=== PATIENT | female | born 2000 | race Caucasian/White ===

== ENCOUNTER 2024-08-27 18:40 | Emergency (ER) | payer MEDICAID, SELFPAY ==
[2024-08-27 18:51] VITALS: BP 136/70; PULSE 100; RESP 18; TEMP 36.6; O2SAT 99; BMI 32.5
--- NOTE | 2024-08-27 18:59 | PD.EDRME ---
Rapid Medical Screening Exam RME Arrival date/time: 08/27/24 18:40 24 year old female present to Ed for c/o possible abscess in groin area. + I have greeted and performed a focused initial assessment of this patient. A comprehensive ED assessment and evaluation of the patient, analysis of all test results, and completion of the medical decision making process will be conducted by additional ED providers. Chief Complaint: Skin/Abscess/Foreign Body Time Seen by Provider: 08/27/24 18:42 Vital signs: Vital Signs Temperature 98 F 08/27/24 18:51 Pulse Rate 100 08/27/24 18:51 Respiratory Rate 18 08/27/24 18:51 Blood Pressure 136/70 H 08/27/24 18:51 Pulse Oximetry (%) 99 08/27/24 18:51 Oxygen Delivery Method Room Air 08/27/24 18:51
--- NOTE | 2024-08-27 19:30 | XR_ITS ---
Examination: Ultrasound soft tissue left perineum Technique: Multiple high resolution grayscale sonographic images soft tissue left perineum Exam date and time: August 27, 2024 1951 hrs. Indications: Palpable painful lump in the left peroneal region noticed beginning 4 days ago Findings: Soft tissue mass with internal echoes 5.5 x 3.5 x 3.1 cm most consistent with abscess Impression: Findings most consistent with soft tissue abscess in the left perineum
[2024-08-27 20:12] VITALS: BP 144/80; PULSE 114; RESP 18; TEMP 37.3; O2SAT 98
--- NOTE | 2024-08-27 21:10 | PD.EDSKIN ---
ED Skin Abcess FB-RME/HPI General Chief complaint: Skin/Abscess/Foreign Body Stated complaint: ABSCESS TO PERINEAL AREA Time Seen by Provider: 08/27/24 18:42 Source: patient Arrival date/time: 08/27/24 18:40 Mode of arrival: ambulatory Limitations: no limitations RME / HPI RME / HPI narrative: 08/27/24 18:40 24 year old female present to Ed for c/o possible abscess in groin area. + I have greeted and performed a focused initial assessment of this patient. A comprehensive ED assessment and evaluation of the patient, analysis of all test results, and completion of the medical decision making process will be conducted by additional ED providers. DR PERRY MAIN ED EVALUATION: 24-year-old female patient complaining of pain and swelling to her left labia starting 2 days ago. Denies fever chills sweats. States she had a visit 2 days ago and complained of dysuria however they did not check her urine at that time in the clinic. Related Data Previous Rx's ?Medication ?Instructions ?Recorded P-EPHED SUL/LORATADINE 1 tab PO QDAY Allergies #30 tabs 10/27/17 (LORATADINE-D 24HR TAB) albuterol sulfate 90 mcg/actuation 1 - 2 puff inhalation Q6HR PRN 10/27/17 aerosol inhaler (ProAir HFA) WHEEZING #1 inh amoxicillin 500 mg capsule 1 cap PO TID sinusitis #30 caps 10/27/17 cephalexin 500 mg capsule 500 mg PO TID #15 caps 08/27/24 Allergies Allergy/AdvReac Type Severity Reaction Status Date / Time No Known Allergies Allergy Verified 08/27/24 18:41 Review of Systems Review of Systems Systems Reviewed: All systems reviewed, normal except as documented Past Medical History Social History SMOKING STATUS: Never smoker ED Exam Narrative Physical exam: GENERAL APPEARANCE: alert and oriented x 4, well-developed, well-nourished, no acute distress VITALS: All vitals were reviewed and the pulse ox is 98% on room air, which is normal according to my interpretation. HEENT: Normocephalic, atraumatic; pupils equal, round, reactive to light; EOMI; mucous membranes pink, moist; oropharynx clear NECK: Supple LUNGS: CTABL; no wheezes, no rales, no rhonchi HEART: Regular rate, regular rhythm; normal S1, S2; no murmurs ABDOMEN: non distended; normal BS; soft, no tenderness, no guarding, no rebound; no masses, no organomegaly, no hernia BACK: no CVA tenderness EXTREMITIES: atraumatic; no edema NEUROLOGIC: awake; alert and oriented x4; cranial nerves II-XII grossly intact; no focal sensory or motor deficits PSYCHIATRIC: appropriate mood and affect SKIN: warm, dry, normal color; no rashes / see procedure note for I&D left labial abscess General Limitations: Present no limitations Course Quality Measures none Orders Category Date Time Status US soft tissue lower back abd Stat Exams 08/27/24 19:30 Completed UA, C/S IF [Urinalysis, C/S if Indicated] Stat Lab 08/27/24 21:30 Completed Urine Culture Stat Lab 08/27/24 21:30 Received Lidocaine 1% 20 ml [Xylocaine 1% 20 ML] Med 08/27/24 20:45 Discontinued 20 ml INFL X1 ONE cephALEXin [Keflex] Med 08/27/24 23:18 Discontinued 500 mg PO X1 ONE Vital Signs Vital signs: Vital Signs Temperature 98 F 08/27/24 18:51 Pulse Rate 100 08/27/24 18:51 Respiratory Rate 18 08/27/24 18:51 Blood Pressure 136/70 H 08/27/24 18:51 Pulse Oximetry (%) 99 08/27/24 18:51 Oxygen Delivery Method Room Air 08/27/24 18:51 Procedures -ED Abscess I/D Site: other (labial abscess) Side (if applicable): left Local Anesthetic: lidocaine 1% Technique: incised with #11 blade Irrigation: Yes Packing used?: plain Skin / Abscess / Foreign Body MDM Narrative MDM Narrative:: Scribe Attestation: ILeta am scribing for and in the presence of Dr. Perry. Provider Notation: Although this document has been carefully reviewed, there may still be some phonetic and other typographical errors. These errors are purely grammatical due to imperfections in the software program and should not be construed in any way to compromise the substance of the patient's medical care during this visit. Patient data External records reviewed:: [facility] previous records (Reviewed documentation - patient is Rh-.) Clinical information provided by:: patient Social determinants that could affect healthcare access:: none Patient has the following chronic illnesses:: None How is presenting disease/condition affected by chronic disease/condition?: no chronic disease Evaluation data The following diagnostics were reviewed and interpreted by me:: radiology exam(s) Lab and/or radiology exams considered but not ordered:: None Interpretation Summary: I personally reviewed the soft tissue ultrasound. Medications / Prescriptions Medications or Prescriptions considered but not ordered:: None Medication administrations:: Medication Administration History Discontinued Medications Cephalexin HCl (Cephalexin 250 Mg Capsule) 500 mg PO X1 ONE Stop: 08/27/24 23:19 Lidocaine HCl (Lidocaine Hcl 1% 20 Ml Vial) 20 ml INFL X1 ONE Stop: 08/27/24 20:46 Last Admin: 08/27/24 21:57 Dose: 20 ml Documented By: MP As above Consultations Consultation(s) initiated? (list below): No Diagnosis Skin/Abscess Differential Diagnosis: abscess of skin or subcutaneous tissue, herpes zoster, cellulitis and contact dermatitis Most likely diagnosis given after review of the tests above:: Left genital labial abscess Admission Indicated Admission indicated?: not indicated Admission Request Was there a request for admission?: No Disposition Plan Disposition Plan: Discharge Discharge Attestation Discharge Attestation: The patient and all family members were given an opportunity to ask questions and understood the discharge instructions. Discharge instructions specifically effects, indications for sooner follow up or return to the emergency department, and the expected course of current diagnosis. Patient condition: Stable Discharge Plan Plan Patient Disposition: HOME (Self Care) Prescriptions/Referrals Prescriptions/Med Rec: New cephalexin 500 mg capsule 500 mg PO TID Qty: 15 0RF No Action amoxicillin 500 MG capsule 1 cap PO TID Qty: 30 0RF Rx Instructions: use for 10 days albuterol sulfate [ProAir HFA] 8.5 GM HFA aerosol inhaler 1 - 2 puff Inhalation Q6HR PRN (Reason: WHEEZING) Qty: 1 0RF Rx Instructions: Please give and use spacer P-EPHED SUL/LORATADINE (LORATADINE-D 24HR TAB) 1 EACH TAB.SR.24H 1 tab PO QDAY Qty: 30 0RF Referrals: No Primary/Family,Physician [Primary Care Provider] - In 1 week Problem List Clinical Impression: Left genital labial abscess, UTI (urinary tract infection), Patient/Caregiver Discharge Instructions Education Materials: ED Abscess, Incision And Drainage, ED CYSTITIS Female Adult Additional Instructions: Follow up in 1-2 days for reexamination and wound repacking. Return sooner if you develop fever, symptoms worsen, or other concerns. Print Language: Czech Stand Alone Forms: [facility] Award Info., Patient Portal Info Letter
[2024-08-27] MEDS: LIDOCAINE HCL 1% 20 ML VIAL INFL (21:57)
[2024-08-27 22:02] LABS: Collection Type, Urine Clean Catch
[2024-08-27 22:07] LABS: Bilirubin,Urine Negative (Negative); Blood,Urine 2+ (Negative); Clarity,Urine Turbid (Clear/Hazy); Color,Urine Yellow (Lt Yel-Yel); Glucose, Urine Negative (Negative); Ketones,Urine Negative (Negative); Leukocyte Esterase,Urine Positive (Negative); Nitrite,Urine Negative (Negative); Protein,Urine Trace (Neg - Trace); RBC,Urine 4 /hpf (0-3); Specific Gravity,Urine 1.019 (1.001-1.035); Squamous Epithelial Cell,Urine 6 /hpf (0-5); WBC,Urine 84 /hpf (0-5)
[2024-08-27 22:10] LABS: Culture Indicated,Urine Yes
[2024-08-27 23:45] VITALS: BP 139/89; PULSE 95; RESP 18; TEMP 36.8; O2SAT 100
[2024-08-27] MEDS: cephALEXin 250 MG CAPSULE 500 MG PO (23:58)
--- NOTE | 2024-08-28 00:12 | PC.NURSE ---
223 report recieved from RN. assuming care at this time([id number])
== END 2024-08-28 00:05 | disposition home or self-care (01) ==
PROVIDERS: Emergency Provider Emergency Medicine
DX: O23.599 Infection of other part of genital tract in pregnancy, unspecified trimester (principal); O23.40 Unspecified infection of urinary tract in pregnancy, unspecified trimester; N39.0 Urinary tract infection, site not specified; Z3A.00 Weeks of gestation of pregnancy not specified
CPT/HCPCS: 56405; 76705; 81001; 87077; 87086; 87186; 99284; J3490; A9270

== ENCOUNTER 2024-08-28 20:58 | Emergency (ER) | payer MEDICAID, SELFPAY ==
[2024-08-28 20:59] VITALS: BMI 32.5
[2024-08-28 21:22] VITALS: BP 123/77; PULSE 106; RESP 18; TEMP 36.9; O2SAT 99
--- NOTE | 2024-08-28 21:33 | EDNOTE_ITS ---
<Statement entered by Nuria Perry MD - 08/28/24 22:01> As co-signing physician, I was present and available for consult prn. I concur with the plan and care as documented by the midlevel provider. ED Wound/Laceration-RME/HPI General Chief Complaint: Wound Recheck / Suture Removal Stated Complaint: RE -CHECK WOUND Time Seen by Provider: 08/28/24 21:33 Arrival date/time: 08/28/24 20:58 24 year old female present to emergency room with c/o of wound check and packing removal LOCATION: Groin SEVERITY: Symptoms are described as being severe with limitations on activities of daily living CONTEXT: The patient is unable to identify any inciting events. DURATION/TIMING: The symptoms started approximately 1 day, ASSOCIATED SYMPTOMS: The patient is unable to identify any other associated symptoms. MODIFYING FACTORS: The patient is unable to identify any alleviating or aggra vating symptoms. PERTINENT ROS: no fevers, no nausea,vomiting, diarrhea, no dizziness/headache no rash no loc/syncope episode no abd/back pain no dsyuria,urgency,frequency REVIEW OF SYSTEMS: See History of Present Illness - with the exception of those mentioned in the history of present illness, all other systems reviewed and reported as negative GENERAL: In general the patient is awake, interactive, in an emergency department gurney. HEAD/EYES/EARS/NOSE/THROAT: normo-cephalic, atraumatic, mucus membranes are moist, anicteric, palpebral conjunctiva is pink, trachea is midline. ABDOMEN: soft, not tender, no masses appreciated : packing removal, nurse at bedside. abscess has improved. no discharge BACK: normal range of motion without pain. leg swelling and no peripheral edema. SKIN: warm, dry, well-perfused, no jaundice, no rash, no telangiectasias or petechia. PSYCH: calm, cooperative, no evidence of psychosis or agitation Related Data Previous Rx's ?Medication ?Instructions ?Recorded P-EPHED SUL/LORATADINE 1 tab PO QDAY Allergies #30 tabs 10/27/17 (LORATADINE-D 24HR TAB) albuterol sulfate 90 mcg/actuation 1 - 2 puff inhalation Q6HR PRN 10/27/17 aerosol inhaler (ProAir HFA) WHEEZING #1 inh amoxicillin 500 mg capsule 1 cap PO TID sinusitis #30 caps 10/27/17 cephalexin 500 mg capsule 500 mg PO TID #15 caps 08/27/24 Allergies Allergy/AdvReac Type Severity Reaction Status Date / Time No Known Allergies Allergy Verified 08/27/24 18:41 Course Course Course Narrative: Abscess Repacking by diego davis PA-C Consent: Verbal consent obtained. Patient identity confirmed: arm band Time out: Immediately prior to procedure a time out was called to verify the correct patient, procedure, equipment, biomedical equipment support specialist and site/side marked as required. Type: abscess Location details: xxx Wound treatment: packed with gauze Patient tolerance: Patient tolerated the procedure well with no immediate complications. continue with previous provider instruction and oral antibiotic. Quality Measures none Vital Signs Vital signs: Vital Signs Temperature 98.5 F 08/28/24 21:22 Pulse Rate 106 H 08/28/24 21:22 Respiratory Rate 18 08/28/24 21:22 Blood Pressure 123/77 08/28/24 21:22 Pulse Oximetry (%) 99 08/28/24 21:22 Oxygen Delivery Method Room Air 08/28/24 21:22 Wound / Laceration Patient data External records reviewed:: [facility] previous records Clinical information provided by:: patient Social determinants that could affect healthcare access:: none Patient has the following chronic illnesses:: none How is presenting disease/condition affected by chronic disease/condition?: no chronic disease Evaluation data The following diagnostics were reviewed and interpreted by me:: other (specify) (none ) Lab and/or radiology exams considered but not ordered:: none Interpretation Summary: none Medications / Prescriptions Medications or Prescriptions considered but not ordered:: none Medication administrations:: none Consultations Consultation(s) initiated? (list below): No Diagnosis Wound Differential Diagnosis: abscess and other (packing, wound check ) Most likely diagnosis given after review of the tests above:: wound check, packing removal/repack Admission Indicated Admission indicated?: not indicated Admission Request Was there a request for admission?: No Disposition Plan Disposition Plan: Discharge Discharge Attestation Discharge Attestation: The patient and all family members were given an opportunity to ask questions and understood the discharge instructions. Discharge instructions specifically effects, indications for sooner follow up or return to the emergency department, and the expected course of current diagnosis. Patient condition: Stable Discharge Plan Plan Patient Disposition: HOME (Self Care) Health Concerns: Follow up with PMD as directed Return to ED if symptoms worsen Prescriptions/Referrals Prescriptions/Med Rec: No Action amoxicillin 500 MG capsule 1 cap PO TID Qty: 30 0RF Rx Instructions: use for 10 days albuterol sulfate [ProAir HFA] 8.5 GM HFA aerosol inhaler 1 - 2 puff Inhalation Q6HR PRN (Reason: WHEEZING) Qty: 1 0RF Rx Instructions: Please give and use spacer P-EPHED SUL/LORATADINE (LORATADINE-D 24HR TAB) 1 EACH TAB.SR.24H 1 tab PO QDAY Qty: 30 0RF cephalexin 500 mg capsule 500 mg PO TID Qty: 15 0RF Problem List Clinical Impression: Visit for wound check Patient/Caregiver Discharge Instructions Education Materials: ED Wound Care Print Language: Hungarian Stand Alone Forms: [facility] Award Info., Patient Portal Info Letter
== END 2024-08-28 21:53 | disposition home or self-care (01) ==
LOC: SERX 21:36
PROVIDERS: Emergency Provider Emergency Medicine; PCP Nurse Practitioner Women's Health
DX: Z48.00 Encounter for change or removal of nonsurgical wound dressing (principal)
CPT/HCPCS: 99282

== ENCOUNTER 2024-10-08 15:33 | Observation (INO) | payer MEDICAID, SELFPAY ==
[2024-10-08] VITALS (15 sets, daily range): BP systolic 118–137; BP diastolic 66–84; PULSE 96–129; RESP 16; TEMP 37.1; O2SAT 98–100; BMI 33.3
[2024-10-08 16:29] LABS: Collection Type, Urine Clean Catch
[2024-10-08 16:39] LABS: Bilirubin,Urine Negative (Negative); Blood,Urine Negative (Negative); Color,Urine Yellow (Lt Yel-Yel); Glucose, Urine Negative (Negative); Hyaline Casts,Urine < 1 /hpf (0-1); Ketones,Urine 1+ (Negative); Leukocyte Esterase,Urine Positive (Negative); Nitrite,Urine Negative (Negative); PH,Urine 6.5 (5.0-7.0); Protein,Urine Trace (Neg - Trace); RBC,Urine 1 /hpf (0-3); Specific Gravity,Urine 1.017 (1.001-1.035); Squamous Epithelial Cell,Urine 16 /hpf (0-5); Urobilinogen,Urine Negative mg/dL (0.0-1.0); WBC,Urine 10 /hpf (0-5)
[2024-10-08 16:45] LABS: ROM Kit Lot # 57809118
[2024-10-08 16:46] LABS: ROM Swab Mixed By: ASTOA1; Rupture of Fetal Membranes Negative (Negative); Swb Mxed in Solvent 1 min? Yes
[2024-10-08 16:47] LABS: Clarity,Urine Hazy (Clear/Hazy)
--- NOTE | 2024-10-08 17:46 | PD.LDPN ---
Documentation for date of: 10/08/24 OB Labor Progress Note Pelvic Exam Comments: 0cm/0/high Contractions Contraction frequency: no regular contractions Status Comments: Reactive, no decelerations Assessment and Plan Comments: OB Triage Note 24 yo at 36+5 presents with concern for LOF, pelvic pressure. notable for Hx of UTI x1 s/p treatment. S: Patient reports 2 weeks of pelvic pressure. Concern for discharge or leaking of fluid. No vaginal bleeding, normal FM. Took abx treatment for UTI. O: BP: 118/66 HR: 96 normal O2 GEN: NAD RESP: normal work of breathing ABD: gravid, non tender EXT: no unilateral sweeling BACK: no CVA tenderness SVE: 0 cm, not effaced, high BSUS: cephalic, DVP 5.14cm NST: reactive, no decelerations [place]: no regular contractions: AMnisure: negative UA: neg nitrites, +LE 1+ ketones A/P: Patient not on labor, no rupture of membranes. No concern for UTI or pyelonephritis. Safe to discharge home with labor precautions FWB: Reactive, normal DVP Follow-up with primary OB provider scheduled. Talita Ramirez MD
== END 2024-10-08 17:50 | disposition home or self-care (01) ==
PROVIDERS: Admitting Provider Obstetrics & Gynecology; Visit Provider Obstetrics & Gynecology
DX: Z34.03 Encounter for supervision of normal first pregnancy, third trimester (principal); Z3A.36 36 weeks gestation of pregnancy
CPT/HCPCS: 59025; 59899; 81001; 84112

== ENCOUNTER 2024-10-17 23:10 | Observation (INO) | payer MEDICAID, SELFPAY ==
[2024-10-17 23:22] VITALS: BP 127/85; PULSE 102; PULSE 110; O2SAT 98
[2024-10-17 23:30] VITALS: BP 127/85; PULSE 102; RESP 100; RESP 16; TEMP 36.8
[2024-10-17 23:31] VITALS: TEMP 36.8; BMI 34.0
[2024-10-17 23:32] VITALS: RESP 16; TEMP 36.8
[2024-10-17 23:38] VITALS: BP 134/88; PULSE 100
[2024-10-17 23:55] VITALS: BP 121/74; PULSE 89
[2024-10-18 00:09] VITALS: BP 114/63; PULSE 81
[2024-10-18 00:24] VITALS: BP 115/60; PULSE 94
[2024-10-18 00:38] VITALS: BP 114/63; PULSE 93
[2024-10-18 00:54] VITALS: BP 126/78; PULSE 87
== END 2024-10-18 01:05 | disposition home or self-care (01) ==
PROVIDERS: Admitting Provider Obstetrics & Gynecology; Visit Provider Obstetrics & Gynecology
DX: O26.893 Other specified pregnancy related conditions, third trimester (principal); Z3A.38 38 weeks gestation of pregnancy; R10.2 Pelvic and perineal pain
CPT/HCPCS: 59025; 59899

== ENCOUNTER 2024-10-20 22:05 | Observation (INO) | payer MEDICAID, SELFPAY ==
[2024-10-20] VITALS (10 sets, daily range): BP systolic 117–140; BP diastolic 70–86; PULSE 72–90; RESP 15–100; TEMP 36.8; O2SAT 100; BMI 34.0
[2024-10-20 23:23] LABS: ROM Kit Lot # 57809118
[2024-10-20 23:24] LABS: ROM Swab Mixed By: RAWLY; Rupture of Fetal Membranes Negative (Negative); Swb Mxed in Solvent 1 min? Yes
[2024-10-21 00:01] VITALS: BP 133/70; PULSE 69
[2024-10-21 00:13] VITALS: BP 147/88; PULSE 70
[2024-10-21 00:28] VITALS: BP 137/95; PULSE 75
[2024-10-21] MEDS: RINGERS LACTATED 1000 ML 1,000 ML 999 ML IV (00:50)
[2024-10-21 00:57] VITALS: BP 120/69; PULSE 67
[2024-10-21 01:12] VITALS: BP 135/71; PULSE 70
== END 2024-10-21 02:05 | disposition home or self-care (01) ==
PROVIDERS: Admitting Provider Obstetrics & Gynecology; Visit Provider Obstetrics & Gynecology
DX: Z34.03 Encounter for supervision of normal first pregnancy, third trimester (principal); Z3A.38 38 weeks gestation of pregnancy
CPT/HCPCS: 59025; 59899; 84112; J7120

== ENCOUNTER 2024-10-23 10:09 | Inpatient (IN) | payer MEDICAID, SELFPAY ==
[2024-10-23] VITALS (190 sets, daily range): BP systolic 103–181; BP diastolic 53–97; PULSE 82–164; RESP 16–99; TEMP 36.8–38.8; O2SAT 82–100; BMI 34.2
[2024-10-23 10:53] LABS: ROM Kit Lot # 57809118; ROM Swab Mixed By: ASTOA1; Rupture of Fetal Membranes Negative (Negative); Swb Mxed in Solvent 1 min? Yes
--- NOTE | 2024-10-23 11:14 | PD.LDHP ---
Documentation for date of: 10/23/24 OB Labor/Induct. HPI History of Present Illness Chief complaint: 24 y/o 38w 6d presents to L&D in early labor with SROM : 1 Para: 0 Term pregnancies: 0 pregnancies: 0 Living children: 0 History of Abortions: Spontaneous and Elective: 0 History of Vaginal deliveries: 0 History of sections: No History of : No MURTAZA: 11/03/24 Gestational Age (weeks): 38 Gestational Age (days): 6 History of present illness: 24 y/o 38w 6d presents to L&D in early labor with SROM Cervix is 2m vertex grossly ruptured. GBS is neg. Pt's has been unremarkable with the exception RH negative status. Pt did get RHOGAM at 28 weeks. Pt was followed by [facility] and her last sono at 36 weeks shows growth at 31%ile, EFW 2663g. EFW as of today is 3200g. History of Present Dating criteria: LMP confirmed by 1st trimester US Adequate Care: Yes Ultrasounds: normal 1st trimester US and normal mid trimester US Obstetrical complications: none Medical complications: none Labs Maternal Blood Type: O Neg Labs: Positive: Rubella Titre, Negative: RPR, HIV, Chlamydia, Gonorrhea and Group Beta Strep and Unknown: Herpes Type 1, Herpes Type 2 and Covid-19 Review of Systems Review of Systems Systems Reviewed: All systems reviewed, normal except as documented Past Medical History Surgical History SURGICAL: Negative Section Meds Home Medications and Allergies Home Medications ?Medication ?Instructions ?Recorded ?Confirmed ?Type vits no.130-ferrous fum 1 tab PO QDAY 10/08/24 10/17/24 History 27 mg iron-folic acid 800 mcg tablet ( Vitamin) Allergies Allergy/AdvReac Type Severity Reaction Status Date / Time latex Allergy Mild Rash Verified 10/23/24 10:53 Latex, Natural Rubber Allergy Verified 10/23/24 10:53 OB Exam Physical Exam Vital signs: Temp Pulse Resp BP 98.3 F 106 H 16 127/97 H 10/23/24 10:46 10/23/24 10:50 10/23/24 10:46 10/23/24 10:50 Constitutional Constitutional: no acute distress Routine HEENT Exam Head: Present normocephalic and atraumatic Eye: Present EOMI, PERRL and normal accommodation ENT: Present mucous membranes moist Routine Neck Exam Neck: Present full ROM Routine Respiratory Exam Respiratory: Absent respiratory distress Routine Cardiovascular Exam Cardiovascular: Present RRR Routine Abdominal Exam Abdominal: Present soft Comments: Gravid Uterus EFW 3200g Routine Exam External: Present normal urethra appearance; Absent lesions Detailed Labor and Delivery Exam Dilation (cm): 2.5 Effacement (%): 80 Cervix position: posterior station: -3 Consistency: soft Presentation: Vertex Membranes: ruptured Amniotic fluid: clear Baseline heart rate: 130 monitor accelerations: 15x15 monitor decelerations: None senior care variability: Moderate (11-25) Contraction frequency (min): 3-4 Contraction duration (sec): 40-60 Tachysystole: No Contraction intensity: Moderate Routine Extremities Exam Extremities: Present full ROM Routine Back/Spine/Pelvis Exam Back/Spine: Present full ROM Routine Skin Exam Skin: Present intact, dry and warm Routine Neurological Exam Neurological: Present alert, oriented X3 and CN II-XII intact Routine Psychiatric Exam Psychiatric: Present normal affect and normal thought process OB Assessment & Plan Assessment and Plan (1) Normal labor: Status: Acute (2) Rupture of membranes with clear amniotic fluid: Status: Acute (3) with 38 completed weeks gestation: Status: Acute (4) Rh negative, maternal: Status: Inactive Additional Plan Induction method: none Plan: augmentation, anticipate NVD and consult MD prn Additional Plan Comment: Routine admit orders Consult anesthesia for an epidural Continuous EFM Anticipate Dr. Hunter Updated (4) Rh negative, maternal Qualifiers: Trimester: third trimester Qualified Code(s): O26.893 - Other specified related conditions, third trimester; Z67.91 - Unspecified blood type, Rh negative
[2024-10-23 11:33] LABS: Basophils # (Auto) 0.1 Thou/mm3 (0.0-0.2); Basophils % (Auto) 0 % (0-2.5); Eosinophils # (Auto) 0.2 Thou/mm3 (0.0-0.5); Eosinophils % (Auto) 1 % (0-10); Hemoglobin 9.7 g/dL (12.0-16.0); Immature Granulocytes % (Auto) 1 % (0-0); Immature Granulocytes Auto 0.14 Thou/mm3 (0.00-0.00); Lymphocytes % (Auto) 12 % (10-50); Mean Corpuscular HGB Conc 32.3 g/dl (31.0-37.0); Mean Corpuscular Hemoglobin 25.3 pg (25.0-35.0); Mean Corpuscular Volume 78 fL (80-100); Monocytes % (Auto) 6 % (0-12); Neutrophils # (Auto) 13.3 Thou/mm3 (1.8-7.7); Neutrophils % (Auto) 80 % (37-80); Nucleated Red Blood Cell % 0 /100 WBC (0); Platelet Count 246 Thou/mm3 (140-440); RDW Standard Deviation 40.8 fL (36.4-46.3); Red Blood Count 3.84 Miln/mm3 (4.00-5.20); White Blood Count 16.7 Thou/mm3 (3.6-11.0)
[2024-10-23] MEDS: RINGERS LACTATED 1000 ML 1,000 ML 125 ML IV ×3 (11:36→18:38)
[2024-10-23 13:14] LABS: Syphilis Nonreactive (Nonreactive)
--- NOTE | 2024-10-23 15:10 | PD.LDPN ---
Documentation for date of: 10/23/24 OB Labor Progress Note Pain Control Pain control: epidural Pelvic Exam Dilation (cm): 3 Effacement (%): 80 station: -2 Amniotic membrane status: Ruptured Contractions Monitor mode: External Contraction frequency: 3-4 Contraction duration: 40-60 Contraction intensity: Moderate Status status: Category l Assessment and Plan Assessment: other (Latent labor) Plan OB labor note: continuous present management Comments: pt is comfortable with the epidural If she does not make change in the next 2 hours start low dose pitocin per protocol Dr. Hunter updated Anticipate
[2024-10-23] MEDS: ACETAMINOPHEN IVPB 1,000 MG/100 ML VIAL 250 MG IV (18:40)
[2024-10-23] MEDS: Ampicillin Inj 2,000 MG in SODIUM CHLORIDE 0.9% (P) 100 ML 200 MG IV (19:25)
--- NOTE | 2024-10-23 23:04 | PD.LDPN ---
Documentation for date of: 10/23/24 OB Labor Progress Note Pain Control Pain control: epidural Pelvic Exam Dilation (cm): 10 Effacement (%): 100 station: +1 Amniotic membrane status: Ruptured Contractions Monitor mode: External Contraction frequency: 2-3 Contraction duration: 40-60 Contraction phase: Contraction Contraction intensity: Strong Status status: Category l Assessment and Plan Assessment: other (2nd stage) Plan OB labor note: continuous present management Comments: RN started pushing with pt CNM in the unit and Dr. Hunter updated Anticipate
[2024-10-24] VITALS (32 sets, daily range): BP systolic 115–166; BP diastolic 61–84; PULSE 74–141; RESP 16–18; TEMP 36.7–37; O2SAT 73–100
[2024-10-24] MEDS: MINERAL OIL 30 ML UDC TOP (00:48)
[2024-10-24] MEDS: TRANEXAMIC ACID 1,000 MG IVPB 1,000 MG/100 ML BAG 200 MG IV ×2 (01:00→02:20)
[2024-10-24] MEDS: OXYTOCIN in NS 20 units 20 UNIT/1,000 ML BAG 125 UNIT IV (01:00)
[2024-10-24] MEDS: IBUPROFEN TAB 400 MG TABLET 800 MG PO ×2 (01:05→13:06)
--- NOTE | 2024-10-24 01:30 | PD.LDDELS ---
Data (Black) Data Hx Section: No Maternal Blood Type: O Neg Rubella Titre: Positive RPR: Non-reactive Labs: Negative: RPR, Hepatitis B, HIV, Chlamydia, Gonorrhea and Group Beta Strep and Unknown: Herpes Type 1 and Herpes Type 2 : 1 Para: 0 Term: 0 : 0 Livin : 0 Delivery Data (Black) Labor Data Stimulated/Augmented: No Induction: No ROM Date: 10/23/24 ROM Time: 06:00 Rupture Type: SROM Amniotic Fluid: Clear Delivery Data EDC: 10/31/24 EDC calculated by:: LMP/early US confirmation Labor Onset Stage 1 Date: 10/23/24 Labor Onset Stage 1 Time: 12:00 Labor Onset Stage 2 Date: 10/23/24 Labor Onset Stage 2 Time: 23:00 Delivery Date: 10/24/24 Delivery Time: 00:49 Gestational age (weeks): 39 Gestational age (days): 0 Placenta Delivery Date: 10/23/24 Placenta Delivery Time: 01:00 Delivered by: Asia Shaw Delivery nurse: Zaira Ford Weatherization Coordinator at delivery: No Support person(s) at delivery: FOB Other staff at delivery: 2nd Nurse Other staff at delivery: Malorie Capone Delivery Method Delivery: Vaginal Delivery Type: Spontaneous Presentation: Vertex Position: OA Anesthesia Type Primary Anesthesia: Epidural Delivery Room Medications Intrapartum Medications: Antibiotics Other Intrapartum Medications: No Post Delivery Medications: Antibiotics Post Delivery Medications N/A: Yes Placenta Placenta Delivery: Spontaneous Placenta Cultures Obtained: No Placenta Sent for Examination: No Cord Sample: Cord Blood Obtained Episiotomy Episiotomy: None Lacerations #1: Vaginal: 1st degree Labial: Left labial Perineal repair Sutures used for repair: 3.0 Chromic (CT) and 3.0 Vicryl (CT) EBL Estimated blood loss (ml): 200 Umbilical Cord Umbilical Vessels: 3 Nuchal Cord: x1 Tightly Body Cord: Not Applicable Additional Procedures After pushing for an hour and 40 minutes patient had an of a viable female infant. Infant's head delivered with a tight nuchal cord easily reduced. Infant's anterior shoulder delivered with gentle downward traction subsequent deliver the posterior shoulder and the body without complications. placed on mother's abdomen. Vigorous cry upon delivery. Cord was clamped. Cut by FOB. Cord blood obtained. Three-vessel cord noted. Placenta expelled spontaneously and intact. Patient sustained a first-degree vaginal laceration and a left labial laceration. Repaired using 3-[address] and a 3-[address] Perineum intact. Excellent hemostasis achieved after vigorous fundal massage and removal of clots from the posterior fornix. EBL 200. Mother and baby stable, skin to skin and bonding in LDR. [place] Data (Black) Data Gender: Female Infant Weight Grams: 3175 1 Minute Total: 7 5 Minute Total: 8
[2024-10-24] MEDS: BENZO/LANO/ALOE (Dermoplast) 60 GM CAN 1 SPRAY TOP (01:59)
[2024-10-24 08:04] LABS: Basophils # (Auto) 0.1 Thou/mm3 (0.0-0.2); Basophils % (Auto) 0 % (0-2.5); Eosinophils % (Auto) 0 % (0-10); Hematocrit 24.8 % (36.0-46.0); Immature Granulocytes % (Auto) 2 % (0-0); Immature Granulocytes Auto 0.63 Thou/mm3 (0.00-0.00); Lymphocytes # (Auto) 1.6 Thou/mm3 (1.0-4.8); Lymphocytes % (Auto) 5 % (10-50); Mean Corpuscular HGB Conc 32.3 g/dl (31.0-37.0); Mean Corpuscular Hemoglobin 25.6 pg (25.0-35.0); Mean Corpuscular Volume 80 fL (80-100); Monocytes # (Auto) 1.5 Thou/mm3 (0.0-0.8); Monocytes % (Auto) 5 % (0-12); Neutrophils % (Auto) 87 % (37-80); Nucleated Red Blood Cell % 0 /100 WBC (0); Platelet Count 204 Thou/mm3 (140-440); RDW Standard Deviation 42.3 fL (36.4-46.3); Red Blood Count 3.12 Miln/mm3 (4.00-5.20); White Blood Count 28.7 Thou/mm3 (3.6-11.0)
[2024-10-24] MEDS: DOCUSATE SOD 100 MG CAPSULE PO (08:59)
--- NOTE | 2024-10-24 13:08 | PD.LDPPPRG ---
Subjective Subjective Interval history: Patient is doing well and , denies dizziness shortness of breath. Ambulating to the bathroom having no problems with voiding. No complaints. Patient's white blood count did increase from 16-28. Exam Vital Signs Temp Pulse Resp BP Pulse Ox O2 Del Method 98.0 F 100 17 115/72 98 Room Air 10/24/24 09:45 10/24/24 09:45 10/24/24 09:45 10/24/24 09:45 10/24/24 09:45 10/24/24 09:45 Constitutional Constitutional: no acute distress Routine HEENT Exam Head: Present normocephalic and atraumatic Eye: Present EOMI, PERRL and normal accommodation ENT: Present mucous membranes moist Routine Neck Exam Neck: Present supple and trachea midline Routine Respiratory Exam Respiratory: Present chest non-tender, lungs clear, normal breath sounds and no resp distress Routine Cardiovascular Exam Cardiovascular: Present RRR Routine Abdominal Exam Abdominal: Present soft and normoactive bowel sounds; Absent tenderness or distended Comments: Uterus nontender Fundus firm Routine Exam Patient deferred: external exam Routine Extremities Exam Extremities: Present full ROM, pulses intact and normal capillary refill; Absent calf tenderness or tenderness Routine Back/Spine/Pelvis Exam Back/Spine: Present full ROM Routine Skin Exam Skin: Present intact, dry and warm Routine Neurological Exam Neurological: Present alert, oriented X3 and CN II-XII intact Routine Psychiatric Exam Psychiatric: Present normal affect and normal thought process Objective Labs 10/24/24 07:30 Labs: Laboratory Results - last 24 hr 10/23/24 10/24/24 10/24/24 11:10 07:30 10:46 WBC 28.7 H D RBC 3.12 L Hgb 8.0 L Hct 24.8 L MCV 80 MCH 25.6 MCHC 32.3 RDW Std Deviation 42.3 Plt Count 204 D Neut % (Auto) 87 H Lymph % (Auto) 5 L [place] % (Auto) 5 Eos % (Auto) 0 Baso % (Auto) 0 Neut # (Auto) 25.0 H Lymph # (Auto) 1.6 [place] # (Auto) 1.5 H Eos # (Auto) 0.0 Baso # (Auto) 0.1 Immature Gran # (Auto) 0.63 H Absolute Nucleated RBC 0.00 Immature Gran % 2 H Nucleated RBC % 0 Syphilis Serology Nonreactive Blood Type O Negative Rho(D) IG Studies Ready Antibody Screen NEGATIVE Maternal Bleed Negative Assessment & Plan Problem List (1) Normal spontaneous vaginal delivery: Status: Acute (2) Encounter for care of lactating mother: Status: Acute (3) Rupture of membranes with clear amniotic fluid: Status: Acute (4) with 38 completed weeks gestation: Status: Acute (5) Normal labor: Status: Acute Plan Comment Plan Comment: Will start 2 g of Ancef Q6 till tomorrow morning Continue routine care Anticipate discharge home tomorrow Time Spent With Patient Time: Total time spent is greater than 50% in coordination of care (as documented) at patient's floor/unit and/or counseling patient: Time with patient: less than 15 minutes
[2024-10-24] MEDS: ceFAZolin/D5W 2 GM IV 2 GM/100 ML BAG IV ×2 (16:28→23:55)
[2024-10-24] MEDS: HYDROcodone/APAP 5/325 TABLET 1 TAB PO (20:34)
--- NOTE | 2024-10-24 22:33 | PC.NURSE ---
2030 pt has been requesting electrical breastpump, rn provided pump to patient. RN educated on pumping intervals and how to use electric breastpump.
[2024-10-25] MEDS: ceFAZolin/D5W 2 GM IV 2 GM/100 ML BAG IV (05:22)
--- NOTE | 2024-10-25 07:23 | PD.LDDS ---
DS: Providers Provider Date of admission: 10/23/24 11:11 Primary care physician: Physician No Primary/Family Admitting Provider: Ina Hunter MD Attending Provider on Admission: Asia Shaw CNM Attending Provider on DC: Asia Shaw CNM Discharging Provider: Asia Shaw CNM Anticipated date of discharge: 10/25/24 DS: Diagnosis Discharge Diagnosis (1) Normal spontaneous vaginal delivery: Status: Acute (2) Encounter for care of lactating mother: Status: Acute (3) Rupture of membranes with clear amniotic fluid: Status: Acute (4) with 38 completed weeks gestation: Status: Acute (5) Normal labor: Status: Acute Problem List Completed Was Problem List Reviewed/Reconciled?: Yes Summary/Hosp Course Brief History: 24 y/o 38w 6d presents to L&D in early labor with SROM Cervix is 2m vertex grossly ruptured. GBS is neg. Pt's has been unremarkable with the exception RH negative status. Pt did get RHOGAM at 28 weeks. Pt was followed by [facility] and her last sono at 36 weeks shows growth at 31%ile, EFW 2663g. EFW as of today is 3200g. 10/24/24: After pushing for an hour and 40 minutes patient had an of a viable female . 's head delivered with a tight nuchal cord easily reduced. 's anterior shoulder delivered with gentle downward traction subsequent deliver the posterior shoulder and the body without complications. placed on mother's abdomen. Vigorous cry upon delivery. Cord was clamped. Cut by FOB. Cord blood obtained. Three-vessel cord noted. Placenta expelled spontaneously and intact. Patient sustained a first-degree vaginal laceration and a left labial laceration. Repaired using 3-[address] and a 3-[address] Perineum intact. Excellent hemostasis achieved after vigorous fundal massage and removal of clots from the posterior fornix. EBL 200. Mother and baby stable, skin to skin and bonding in LDR. 10/24/24: Patient is doing well and , denies dizziness shortness of breath. Ambulating to the bathroom having no problems with voiding. No complaints. Patient's white blood count did increase from 16-28. Start 2 g Ancef Q6 till tomorrow morning. Continue routine care. Anticipate discharge home tomorrow. 10/25/24: day 1. Patient is doing well denies denies dizziness shortness of breath ambulating with no problems no complaints. Eager to go home. Uterus is nontender fundus firm minimal lochia. Discharge instructions given. Patient to follow-up with Asia Shaw CNM in 3 weeks Peripartum Data Delivery Method: Normal Vaginal Delivery Episiotomy Description: None Laceration Description: yes and see Delivery Summary [place] 1: Gender: Female Disposition of : home Status at Discharge Cognitive/behavioral status at discharge: Alert discharge to x 3 Functional status at discharge: independent ambulation Overall status at discharge: patient is progressing back to baseline Time Spent with Patient Time attestation: Total time spent providing and/or coordinating discharge services: Time spent: Greater than 30 minutes Exam Vital Signs Temp Pulse Resp BP Pulse Ox O2 Del Method 99.6 F 101 H 18 118/75 86 L Room Air 10/23/24 22:00 10/24/24 01:04 10/23/24 18:35 10/24/24 01:04 10/24/24 00:48 10/23/24 22:00 Constitutional Constitutional: no acute distress Routine HEENT Exam Head: Present normocephalic and atraumatic Eye: Present EOMI and PERRL ENT: Present mucous membranes moist Routine Neck Exam Neck: Present supple, full ROM and trachea midline Routine Respiratory Exam Respiratory: Present chest non-tender, lungs clear, normal breath sounds and no resp distress Routine Cardiovascular Exam Cardiovascular: Present RRR Routine Abdominal Exam Abdominal: Present soft and normoactive bowel sounds; Absent tenderness or distended Comments: Uterus nontender Fundus firm Routine Exam Patient deferred: external exam Routine Extremities Exam Extremities: Present full ROM, pulses intact and normal capillary refill; Absent calf tenderness or tenderness Routine Back/Spine/Pelvis Exam Back/Spine: Present full ROM Routine Skin Exam Skin: Present intact, dry and warm Routine Neurological Exam Neurological: Present alert, oriented X3 and CN II-XII intact Routine Psychiatric Exam Psychiatric: Present normal affect and normal thought process Discharge Plan Plan Patient Disposition: HOME (Self Care) Patient condition on transfer: Stable Prescriptions/Referrals Prescriptions/Med Rec: New ibuprofen 800 mg tablet 800 mg PO Q6H MDD 4 PRN (Reason: pain) Qty: 120 0RF docusate sodium [Colace] 100 mg capsule 100 mg PO BID Qty: 60 0RF lanolin 50 % ointment 1 applic topical TID PRN (Reason: skin irritation) Qty: 15 0RF Continued Vitamin 27 mg iron- 800 mcg tablet 1 tab PO QDAY Patient Comments: TAKE 1 TABLET BY MOUTH EVERY DAY Referrals: No Primary/Family,Physician [Primary Care Provider] - Patient/Caregiver Discharge Instructions Meds to Beds: No Discharge Activity: activity as tolerated Other Discharge Activity Instructions:: Follow-up with Asia Shaw CNM in 3 weeks Education Materials: After a Vaginal , How to Breastfeed, After Delivery Jackson Concerns Print Language: Telugu Stand Alone Forms: Alvina Award Info., Patient Portal Info Letter Discharge Order Discharge Orders: Discharge (Routine); Ordered 10/25/24 Ordered By: Asia Shaw Planned Discharge Date 10/25/24
[2024-10-25 08:37] VITALS: BP 130/80; PULSE 78; RESP 18; TEMP 36.7; O2SAT 98
== END 2024-10-25 11:04 | disposition home or self-care (01) | DRG 560 ==
LOC: S4SX 10-24 02:40 → S4NX 10-24 04:04
PROVIDERS: Admitting Provider Student in an Organized Health Care Education/Training Program; Visit Provider Nurse Practitioner Women's Health
DX: O42.02 Full-term premature rupture of membranes, onset of labor within 24 hours of rupture (principal); Z37.0 Single live birth; Z3A.38 38 weeks gestation of pregnancy; O69.1XX0 Labor and delivery complicated by cord around neck, with compression, not applicable or unspecified; O70.0 First degree perineal laceration during delivery; Z78.9 Other specified health status
CPT/HCPCS: 36415; 59025; 59409; 84112; 85025; 85461; 86780; 86850; 86900; 86901; 94762; J0131; J0290; J0689; J2590; J2790; J2795; J3010; J3490; J7120; A9270

== ENCOUNTER 2025-02-23 08:30 | Emergency (ER) | payer MEDICAID, SELFPAY ==
[2025-02-23 08:39] VITALS: BP 125/68; PULSE 89; RESP 16; TEMP 37.3; O2SAT 99; BMI 30.9
--- NOTE | 2025-02-23 08:39 | XR_ITS ---
Examination: Complete OB ultrasound, less than 14 weeks, transabdominal Date and time of exam: February 23, 2025 0846 hours INDICATIONS: Onset vaginal bleeding today Technique: Obstetrical ultrasound images less than 14 weeks performed via transabdominal imaging Findings: Uterus 8.2 cm endometrial stripe 0.7 cm No uterine mass or intrauterine gestation Right ovary 2.7 cm arterial flow Left ovary 3.8 cm arterial flow IMPRESSION: Negative study
--- NOTE | 2025-02-23 08:40 | EDNOTE_ITS ---
<Statement entered by Nuria Perry MD - 02/23/25 16:58> As co-signing physician, I was present and available for consult prn. I concur with the plan and care as documented by the midlevel provider. ED OB Contraction Preg RMI/HPI General Chief complaint: Vaginal Bleeding Stated complaint: VAGINAL BLEED X YESTERDAY; 5WKS , 4 MOS PP Time Seen by Provider: 02/23/25 08:41 Source: patient Arrival date/time: 02/23/25 08:30 23-year-old female with no known medical history presents to the emergency room with a chief complaint of vaginal bleeding x 2 days. Patient states she is currently 5 weeks . Mode of arrival: ambulatory Limitations: no limitations Related Data Home Medications ?Medication ?Instructions ?Recorded ?Confirmed vits no.130-ferrous fum 1 tab PO QDAY 5 10/23/24 27 mg iron-folic acid 800 mcg tablet ( Vitamin) Previous Rx's ?Medication ?Instructions ?Recorded docusate sodium 100 mg capsule 100 mg PO BID #60 caps 10/24/24 (Colace) ibuprofen 800 mg tablet 800 mg PO Q6H PRN pain #120 tabs 10/24/24 lanolin 50 % topical ointment 1 applic topical TID PRN skin 10/24/24 irritation #15 tubes Allergies Allergy/AdvReac Type Severity Reaction Status Date / Time latex Allergy Mild Rash Verified 02/23/25 08:34 Latex, Natural Rubber Allergy Verified 02/23/25 08:34 Review of Systems Review of Systems Systems Reviewed: All systems reviewed, normal except as documented Constitutional Constitutional: Reports system reviewed and no additional complaints, except as documented, Denies fatigue, Denies fever(s), Denies headache(s) and Denies weakness Eyes Eyes: Reports system reviewed and no additional complaints, except as documented, Denies blurry vision and Denies change in vision ENT Ears, Nose, Mouth, and Throat: Reports system reviewed and no additional compla ints, except as documented, Denies otalgia, Denies headache(s), Denies nasal congestion, Denies throat swelling and Denies vertigo Cardiovascular Cardiovascular: Reports system reviewed and no additional complaints, except as documented, Denies chest pain, Denies dyspnea and Denies dyspnea on exertion Respiratory Respiratory: Reports system reviewed and no additional complaints, except as documented, Denies chest congestion, Denies cough, Denies dyspnea, Denies dyspnea on exertion and Denies wheezing Gastrointestinal Gastrointestinal: Reports system reviewed and no additional complaints, except as documented, Denies abdominal pain, Denies cramping, Denies nausea and Denies vomiting Genitourinary Genitourinary: Reports system reviewed and no additional complaints, except as documented and Reports abnormal vaginal bleeding Musculoskeletal Musculoskeletal: Reports system reviewed and no additional complaints, except as documented and Denies back pain Integumentary/Breasts Skin/Breast: Reports system reviewed and no additional complaints, except as documented and Denies wounds Neurologic Neurologic: Reports system reviewed and no additional complaints, except as documented, Denies confusion, Denies headache(s), Denies lack of coordination, D enies vertigo and Denies weakness Psychiatric Psychiatric: Reports system reviewed and no additional complaints, except as documented, Denies anxiety, Denies confusion, Denies depression, Denies paranoia, Denies suicidal ideation and Denies tactile hallucinations Endocrine Endocrine: Reports system reviewed and no additional complaints, except as documented and Denies fatigue Hematologic/Lymphatic Hematologic/Lymphatic: Reports system reviewed and no additional complaints, except as documented and Denies lymphadenopathy Allergic/Immunologic Allergic/Immunologic: Reports system reviewed and no additional complaints, except as documented, Denies throat swelling, Denies urticaria and Denies wheezing Past Medical History Past Medical History NEUROLOGIC: Negative Neurological Disorders or Seizures CARDIAC: Negative Cardiac Disorders, Congestive Heart Failure, Hypertension or Hypotension RESPIRATORY: Negative Chronic Obstructive Pulmonary Disease (COPD) or Asthma GASTROINTESTINAL: Negative Gastrointestinal Disorders, Hepatitis or Colorectal Cancer GENITOURINARY: Negative Genitourinary Disorders, Renal Disease or Prostate Cancer REPRODUCTIVE: Negative Breast Cancer, Pelvic Inflammatory Disease, Previous Pregnancies or Testicular Cancer MUSCULOSKELETAL: Negative Musculoskeletal Disorders, Bone Cancer or Osteoporosis ENDOCRINE: Negative Endocrine Disorders, Diabetes Mellitus Type 1 or Diabetes Mellitus Type 2 HEMATOLOGIC: Negative Blood Disorders or Anemia PSYCHO/SOCIAL: Negative Bipolar Disorder, Depression or Anxiety OTHER HISTORY: Negative Hospitalization, Autoimmune Disease, Down Syndrome, Developmental Delay, Shingles, Falls, Blood Transfusions, Blood Transfusion Reaction, Anesthesia Reactions, Organ Transplant, Chemotherapy, Radiation Therapy, Hyperbaric Therapy, MRSA, VRSA, Vancomycin-Resistant Enterococci, Human Immunodeficiency Virus (HIV), Chicken Pox, Measles, Mumps, Rubella ([place] Measles), Pertussis, Clostridium Difficile, Cancer, Breast Cancer, Cervical Cancer, Colorectal Cancer, Lung Cancer, Ovarian Cancer, Prostate Cancer or Testicular Cancer Family History FAMILY HISTORY: Negative Family Psychiatric Problems, Family Respiratory Disorders, Family Cardiac Disorders, Family Gastrointestinal Problems, Family Cancer, Family Surgery or Family Anesthesia Reaction Surgical History SURGICAL: Negative Section or Organ Transplant Social History SMOKING STATUS: Never smoker SECOND HAND EXPOSURE: No ED Exam General Limitations: Present no limitations General appearance: Present alert and in no apparent distress Head Head exam: Present atraumatic Eye Eye exam: Present normal appearance, PERRL and EOMI ENT ENT exam: Present normal exam, normal oropharynx and mucous membranes moist Neck Neck exam: Present normal inspection, full ROM and trachea midline Chest Chest inspection: Present normal inspection and symmetric chest wall rise Respiratory Respiratory exam: Present normal lung sounds bilaterally Cardiovascular Cardiovascular exam: Present regular rate, normal rhythm and normal heart sounds Abdominal Exam Abdominal exam: Present soft and normal bowel sounds Abdominal tenderness: Absent RLQ, LLQ or suprapubic Extremities Exam Extremities exam: Present normal inspection and full ROM Back Exam Back exam: Present normal inspection and full ROM Neurological Exam Neurological exam: Present alert, oriented X3 and CN II-XII intact Psychiatric Psychiatric exam: Present normal affect and normal mood Skin Skin exam: Present warm, dry, intact and normal color Course Quality Measures none Orders Category Date Time Status US OB <= 14 weeks fetus Stat Exams 02/23/25 08:39 Completed ABO/RH Type Stat Lab 02/23/25 09:10 Completed Beta HCG,Quantitative Stat Lab 02/23/25 09:10 Completed CBC Stat Lab 02/23/25 09:10 Completed CMP [Comprehensive Metabolic Panel] Stat Lab 02/23/25 09:10 Completed UA [Urinalysis] Stat Lab 02/23/25 11:43 Received Vital Signs Vital signs: Vital Signs Temperature 99.1 F 02/23/25 08:39 Pulse Rate 89 02/23/25 08:39 Respiratory Rate 16 02/23/25 08:39 Blood Pressure 125/68 02/23/25 08:39 Pulse Oximetry (%) 99 02/23/25 08:39 Oxygen Delivery Method Room Air 02/23/25 08:39 O2 saturation within normal limits Vaginal Bleeding MDM Narrative MDM Narrative: 23-year-old female with no known medical history presents to the emergency room with a chief complaint of vaginal bleeding x 2 days. Patient states she is currently 5 weeks . Patient is hemodynamically stable and in no apparent distress Physical examination shows mild bilateral pelvic cramping. Patient states she has had vaginal bleeding x 2 days. Ultrasound OB was completed and at this time there is no intrauterine mass or intrauterine gestation that was seen and visualized. The patient's hCG levels are 68. Patient's hemoglobin and hematocrit are within normal limits Patient was educated to return in 3 days for repeat ultrasound and blood work and to follow-up with her RECORD CENTER COORDINATOR. Patient was discharged and educated to follow-up with primary care provider in the next 24 to 48 hours and return to the emergency room for any evidence of worsening signs or symptoms Patient data External records reviewed:: [facility] previous records Clinical information provided by:: patient Social determinants that could affect healthcare access:: none Patient has the following chronic illnesses:: No chronic illness How is presenting disease/condition affected by chronic disease/condition?: no chronic disease Evaluation data The following diagnostics were reviewed and interpreted by me:: lab results and radiology exam(s) Lab and/or radiology exams considered but not ordered:: Labs and radiology exams considered and ordered Interpretation Summary: Ultrasound OB-Findings: Uterus 8.2 cm endometrial stripe 0.7 cm No uterine mass or intrauterine gestation Right ovary 2.7 cm arterial flow Left ovary 3.8 cm arterial flow IMPRESSION: Negative study Medications / Prescriptions Medications or Prescriptions considered but not ordered:: No medication given Medication administrations:: No medication given Consultations Consultation(s) initiated? (list below): No Diagnosis Vaginal Bleeding Differential Diagnosis: threatened , dysfunctional uterine bleeding, ectopic without intrauterine and vaginal bleeding Most likely diagnosis given after review of the tests above:: Vaginal bleeding Admission Indicated Admission indicated?: not indicated Admission Request Was there a request for admission?: No Disposition Plan Disposition Plan: Discharge Discharge Attestation Discharge Attestation: The patient and all family members were given an opportunity to ask questions and understood the discharge instructions. Discharge instructions specifically effects, indications for sooner follow up or return to the emergency department, and the expected course of current diagnosis. Patient condition: Stable Discharge Plan Plan Patient Disposition: HOME (Self Care) Discharge Disposition comment: Stable Prescriptions/Referrals Prescriptions/Med Rec: No Action Vitamin 27 mg iron- 800 mcg tablet 1 tab PO QDAY Patient Comments: TAKE 1 TABLET BY MOUTH EVERY DAY ibuprofen 800 mg tablet 800 mg PO Q6H MDD 4 PRN (Reason: pain) Qty: 120 0RF docusate sodium [Colace] 100 mg capsule 100 mg PO BID Qty: 60 0RF lanolin 50 % ointment 1 applic topical TID PRN (Reason: skin irritation) Qty: 15 0RF Referrals: Hiro Haley MD [Primary Care Provider] - In 1 week Problem List Clinical Impression: Vaginal bleeding Patient/Caregiver Discharge Instructions Education Materials: ED Dysfunctional Uterine Bleeding Additional Instructions: Please follow-up with your RECORD CENTER COORDINATOR in the next 24 to 48 hours An ultrasound was completed but at this time nothing was visualized. You will need to return or follow-up with your RECORD CENTER COORDINATOR in the next 3 days for repeat blood work and an ultrasound for comparison. At this time your hCG levels were 68. For any evidence of worsening signs or symptoms return to the emergency room immediately Print Language: Italian Stand Alone Forms: Alvina Award Info., Work/School Release, Patient Portal Info Letter PA/NACHO Supervising Physician KUNAL/NACHO Supervising Physician: Dr. PERRY
[2025-02-23 09:29] LABS: Basophils % (Auto) 1 % (0-2.5); Eosinophils # (Auto) 0.3 Thou/mm3 (0.0-0.5); Eosinophils % (Auto) 5 % (0-10); Hematocrit 33.3 % (36.0-46.0); Hemoglobin 11.1 g/dL (12.0-16.0); Immature Granulocytes % (Auto) 0 % (0-0); Immature Granulocytes Auto 0.01 Thou/mm3 (0.00-0.00); Lymphocytes # (Auto) 1.8 Thou/mm3 (1.0-4.8); Lymphocytes % (Auto) 27 % (10-50); Mean Corpuscular HGB Conc 33.3 g/dl (31.0-37.0); Mean Corpuscular Hemoglobin 27.8 pg (25.0-35.0); Mean Corpuscular Volume 84 fL (80-100); Monocytes # (Auto) 0.5 Thou/mm3 (0.0-0.8); Monocytes % (Auto) 7 % (0-12); Neutrophils # (Auto) 3.9 Thou/mm3 (1.8-7.7); Neutrophils % (Auto) 60 % (37-80); Nucleated Red Blood Cell % 0 /100 WBC (0); Platelet Count 266 Thou/mm3 (140-440); RDW Standard Deviation 42.1 fL (36.4-46.3); Red Blood Count 3.99 Miln/mm3 (4.00-5.20); White Blood Count 6.5 Thou/mm3 (3.6-11.0)
[2025-02-23 09:43] LABS: Alanine Aminotransferase 21 U/L (10-49); Albumin, Serum 4.5 gm/dL (3.5-5.0); Albumin/Globulin Ratio 1.8 (1.2-2.2); Alkaline Phosphatase 97 U/L (46-116); Anion Gap 8 (7-16); Aspartate Amino Transferase 21 U/L (0-34); BUN/Creatinine Ratio 16 Ratio (12-20); Beta HCG,Quantitative 68 mIU/mL (<5.0); Bilirubin,Total 0.2 mg/dL (0.3-1.2); Blood Urea Nitrogen 11 mg/dL (9-23); Calcium 8.9 mg/dL (8.3-10.6); Calcium (Corrected) 8.9 mg/dL (8.5-10.1); Carbon Dioxide 26.8 mMol/L (20.0-31.0); Chloride 107 mMol/L (98-107); Creatinine (Component) 0.7 mg/dL (0.6-1.3); Estimated Creatinine Clearance 119.9 mL/min (>60); Globulin 2.5 gm/dL (2.3-3.5); Glucose 100 mg/dL (74-106); Osmolality,Calculated 282 (275-295); Potassium 4.1 mMol/L (3.4-5.1); Sodium 142 mMol/L (136-145); eGFR > 60 See Note
[2025-02-23 11:47] LABS: Collection Type, Urine Clean Catch
[2025-02-23 11:58] LABS: Bilirubin,Urine Negative (Negative); Blood,Urine 3+ (Negative); Clarity,Urine Clear (Clear/Hazy); Color,Urine Lt-Yellow (Lt Yel-Yel); Glucose, Urine Negative (Negative); Ketones,Urine Negative (Negative); Leukocyte Esterase,Urine Negative (Negative); Nitrite,Urine Negative (Negative); Protein,Urine Negative (Neg - Trace); RBC,Urine 12 /hpf (0-3); Specific Gravity,Urine 1.024 (1.001-1.035); Squamous Epithelial Cell,Urine 4 /hpf (0-5); Urobilinogen,Urine Negative mg/dL (0.0-1.0); WBC,Urine 5 /hpf (0-5)
== END 2025-02-23 12:11 | disposition home or self-care (01) ==
PROVIDERS: Nurse Practitioner Family; Emergency Provider Emergency Medicine; PCP Family Medicine
DX: O20.9 Hemorrhage in early pregnancy, unspecified (principal); Z3A.01 Less than 8 weeks gestation of pregnancy
CPT/HCPCS: 36415; 76801; 80053; 81001; 84702; 85025; 86900; 86901; 99284

== ENCOUNTER 2025-02-23 22:52 | Emergency (ER) | payer MEDICAID, SELFPAY ==
--- NOTE | 2025-02-23 22:56 | PC.NURSE ---
PT CAME TO THE JEWEL[employer] SALES REPRESENTATIVE UPSET AND YELLING AT THIS TRIAGE NURSE DUE BEING HERE FOR 5 HOURS THIS MORNING. I STARTED TO ASK THE PATIENT THE TRIAGE QUESTIONS AND PATIENT BEGAN TO YELL AT THIS NURSE DUE TO BEING UPSET FOR THE LONG WAIT TIME FROM THE PREVIOUS VISIT. PATIENTS MOTHER STARTED YELLING AT THIS NURSE STATING I WANT TO TALK TO SOMEONE ELSE. PATIENT WAS UPSET THAT I HAD TO ASK HER QUESTION TO TRIAGE HER. PATIENT STATED, I CAN NOT ANSWER THESE QUESTIONS. I EXPLAINED, I NEED TO ASK THESE QUESTIONS TO HELP HER TO BE SEEN. I CALLED THE CHARGE NURSE TO SPEAK TO THE PATIENT DUE TO PATIENT AND MOTHER CONTINUING TO BE RUDE TO THIS NURSE. CHARGE NURSE DONAVON MARTÍNEZ CAME TO TALK TO SPEAK TO THE PATIENT. THE PATIENT AND MOTHER CONTINUE TO MAKE COMMENTS SAYING THIS PLACE SUCKS AND EVERYONE HERE DOES NOT CARE ABOUT ANYONE.
[2025-02-23 23:10] VITALS: BP 147/79; PULSE 99; RESP 18; TEMP 37.5; O2SAT 98
--- NOTE | 2025-02-23 23:32 | XR_ITS ---
Examination: OB Transvaginal ultrasound of the pelvis, complete Technique: Transvaginal sonographic images pelvis performed using mora scale imaging Exam date and time: February 23, 2025 11:53 PM INDICATIONS: Vaginal bleeding and cramping beginning 2 days ago FINDINGS: Uterus 8.6 cm endometrial stripe in the fundal region 0.3 cm Probable minimal fluid in the cervix but clinical correlation is advised Right ovary 2.4 cm arterial flow Note ovary 3.0 cm arterial flow. IMPRESSION: No definite intrauterine gestation Probable minimal fluid in the cervix but clinical correlation is advised. Recommend short term follow-up transvaginal pelvic sonography as clinically warranted .
[2025-02-24 00:03] LABS: Hematocrit 33.2 % (36.0-46.0)
--- NOTE | 2025-02-24 00:05 | PD.EDVAGBL ---
ED OB Contraction Preg RMI/HPI General Chief complaint: Abdominal Pain Stated complaint: 4WKS PREG/ VAG BLEEDING /ABD PAIN Time Seen by Provider: 02/23/25 23:41 Arrival date/time: 02/23/25 22:52 RME / HPI RME / HPI Narrative: This section includes all my notes and documentations, including HPI, PE, and ED course. Juan Harkins MD HPI: 24 y/o female presents to ED c/o vaginal spotting and cramping x 2 days. LMP 01/09/25. No other complaints. ROS: All negative except as documented in HPI. Physical Exam: General: Alert and oriented. No acute distress when remaining still. Eyes: Conjunctivae and lids clear. ENT: No nasal congestion. Neck: Supple. Heart: RRR. Lungs: No respiratory distress. Good air movement. No rhonchi, wheezing, rales. Abdomen: Soft and nontender. Normal bowel sounds. No distension. No rebound or guarding. Back: No CVA tenderness. Skin: Warm and dry. Neuro: Alert and oriented X 3. I reviewed all diagnostic test results. My review of the Transvaginal US report is no IUP. 02/23/2025 blood tests and urine tests unremarkable except hCG 68. At this point, diagnoses include threatened miscarriage. Recommended expectant management. Based on my best medical judgment, made decision no further evaluation or treatment indicated at this time. Patient understands and agrees to the discharge instructions customized and printed, see below. Discharge Instructions from Dr. Harkins: 1.? ? ? After evaluation, the ultrasound shows no ectopic . And there is no obvious in your uterus. May be too early. We called this threatened miscarriage. 2.? ? ? Today, your gestational age may be 4-6 weeks based on last menstruation 01/09/25. 3.? ? ? Only time will determine whether you will have a successful or you will have a miscarriage.? If your symptoms stop, you can have a successful .? If your symptoms worsen, you may have a miscarriage.? If you have a miscarriage, unfortunately we won?t be able to save the baby because it?s too early.? Under 20 weeks, unfortunately we can?t help.?? 4.? ? ? See your private doctor on 02/28/2025 for recheck.? No sexual activity until cleared by a doctor taking care of you.?? Asked to consider repeat ultrasound and repeat hCG level. 02/23/2025 hCG was 68. This doubles every few days in normal . 5.? ? ? Seek immediate medical care for severe bleeding (soaking more than 3 pads per hour), intolerable pain, or with any concerns Juan Harkins MD Related Data Home Medications ?Medication ?Instructions ?Recorded ?Confirmed vits no.130-ferrous fum 1 tab PO QDAY 10/08/24 10/23/24 27 mg iron-folic acid 800 mcg tablet ( Vitamin) Previous Rx's ?Medication ?Instructions ?Recorded docusate sodium 100 mg capsule 100 mg PO BID #60 caps 10/24/24 (Colace) ibuprofen 800 mg tablet 800 mg PO Q6H PRN pain #120 tabs 10/24/24 lanolin 50 % topical ointment 1 applic topical TID PRN skin 10/24/24 irritation #15 tubes Allergies Allergy/AdvReac Type Severity Reaction Status Date / Time latex Allergy Mild Rash Verified 02/23/25 08:34 Latex, Natural Rubber Allergy Verified 02/23/25 08:34 Review of Systems Review of Systems Systems Reviewed: All systems reviewed, normal except as documented ED Exam Narrative Physical exam: Refer to HPI above Course Quality Measures none Orders Category Date Time Status US OB transvaginal Stat Exams 02/23/25 23:32 Taken Hemoglobin and Hematocrit Stat Lab 02/23/25 23:40 Completed Vital Signs Vital signs: Vital Signs Temperature 99.5 F 02/23/25 23:10 Pulse Rate 99 02/23/25 23:10 Respiratory Rate 18 02/23/25 23:10 Blood Pressure 147/79 H 02/23/25 23:10 Pulse Oximetry (%) 98 02/23/25 23:10 Oxygen Delivery Method Room Air 02/23/25 23:10 Vaginal Bleeding MDM Narrative MDM Narrative: Scribe Attestation: IAnnette, am scribing for and in the presence of Dr. Harkins. Provider Notation: Although this document has been carefully reviewed, there may still be some phonetic and other typographical errors.? These errors are purely grammatical due to imperfections in the software program and should not be construed in any way to? compromise the substance of the patient's medical care during this visit. 24 y/o female presents to ED c/o vaginal bleeding and cramping x 2 days. No other complaints. Patient data External records reviewed:: [facility] previous records (Reviewed prior ED records from 08/28/24. Patient was seen for Visit for wound check.) Clinical information provided by:: patient Social determinants that could affect healthcare access:: none Patient has the following chronic illnesses:: None reported How is presenting disease/condition affected by chronic disease/condition?: no chronic disease Evaluation data The following diagnostics were reviewed and interpreted by me:: lab results and radiology exam(s) Lab and/or radiology exams considered but not ordered:: None Interpretation Summary: I reviewed all diagnostic test results. My review of the Transvaginal US report is no IUP. 02/23/2025 blood tests and urine tests unremarkable except hCG 68. Medications / Prescriptions Medications or Prescriptions considered but not ordered:: None Medication administrations:: N/A Consultations Consultation(s) initiated? (list below): No Diagnosis Vaginal Bleeding Differential Diagnosis: missed , threatened , dysfunctional uterine bleeding, menometrorrhagia, incomplete , ectopic without intrauterine and vaginal bleeding Most likely diagnosis given after review of the tests above:: Threatened miscarriage Admission Indicated Admission indicated?: not indicated Explain why admission is indicated or not indicated:: There was no indication for admission.? Admission Request Was there a request for admission?: No Disposition Plan Disposition Plan: Discharge Discharge Attestation Discharge Attestation: The patient and all family members were given an opportunity to ask questions and understood the discharge instructions. Discharge instructions specifically effects, indications for sooner follow up or return to the emergency department, and the expected course of current diagnosis. Patient condition: Stable Discharge Plan Plan Patient Disposition: HOME (Self Care) Prescriptions/Referrals Prescriptions/Med Rec: No Action Vitamin 27 mg iron- 800 mcg tablet 1 tab PO QDAY Patient Comments: TAKE 1 TABLET BY MOUTH EVERY DAY ibuprofen 800 mg tablet 800 mg PO Q6H MDD 4 PRN (Reason: pain) Qty: 120 0RF docusate sodium [Colace] 100 mg capsule 100 mg PO BID Qty: 60 0RF lanolin 50 % ointment 1 applic topical TID PRN (Reason: skin irritation) Qty: 15 0RF Referrals: Temporary Provider,ED [Physician] - In 1 week Problem List Clinical Impression: Threatened miscarriage Patient/Caregiver Discharge Instructions Discharge Activity: activity as tolerated Education Materials: ED Possible Miscarriage ... Additional Instructions: Discharge Instructions from Dr. Harkins: 1.? ? ? After evaluation, the ultrasound shows no ectopic . And there is no obvious in your uterus. May be too early. We called this threatened miscarriage. 2.? ? ? Today, your gestational age may be 4-6 weeks based on last menstruation 01/09/25. 3.? ? ? Only time will determine whether you will have a successful or you will have a miscarriage.? If your symptoms stop, you can have a successful .? If your symptoms worsen, you may have a miscarriage.? If you have a miscarriage, unfortunately we won?t be able to save the baby because it?s too early.? Under 20 weeks, unfortunately we can?t help.?? 4.? ? ? See your private doctor on 02/28/2025 for recheck.? No sexual activity until cleared by a doctor taking care of you.?? Asked to consider repeat ultrasound and repeat hCG level. 02/23/2025 hCG was 68. This doubles every few days in normal . 5.? ? ? Seek immediate medical care for severe bleeding (soaking more than 3 pads per hour), intolerable pain, or with any concerns.? Print Language: Vietnamese Stand Alone Forms: [facility] Award Info., Patient Portal Info Letter
[2025-02-24 02:02] VITALS: BP 177/76; PULSE 81; RESP 18; TEMP 37.1; O2SAT 99
--- NOTE | 2025-02-24 02:16 | PRELIM_ITS ---
Pelvic ultrasound (transvaginal). February 23, 2025 2353 hours Clinical history: Bleeding. Beta hCG 68. Technique: Real-time ultrasound was performed using Duplex scanning including arterial inflow, venous outflow, color and spectral Doppler analysis of both ovaries. Comparison: None. Findings: The uterus is normal in size measuring 8.6 x 4.5 x 5.6 cm. The endometrium measures 0.3 cm. No intrauterine gestational sac is seen at this time.Minimal fluid in the endocervical canal. The right ovary measures 2.4 x 1.9 x 1.8 cm and is unremarkable. The left ovary measures 3 x 1.7x 1.7 cm and is unremarkable. No adnexal mass is demonstrated. There is no free fluid. Impression: No evidence of intrauterine gestation at this time. Recommend correlation with serum beta hCG and sonographic follow up. Report Electronically Signed By: Shakir Lorenz 02/24/2025 2:16:00 AM [EST]
== END 2025-02-24 02:35 | disposition home or self-care (01) ==
PROVIDERS: Emergency Provider Emergency Medicine; PCP Family Medicine
DX: O20.0 Threatened abortion (principal); Z3A.00 Weeks of gestation of pregnancy not specified
CPT/HCPCS: 36415; 76817; 85014; 85018; 99284

== ENCOUNTER 2025-05-31 19:02 | Emergency (ER) | payer MEDICAID, SELFPAY ==
[2025-05-31 19:55] VITALS: BP 101/66; PULSE 122; RESP 18; TEMP 37.8; O2SAT 97
--- NOTE | 2025-05-31 20:36 | EDNOTE_ITS ---
Upper Respiratory Inf. RME/HPI General Chief Complaint: Fever Stated Complaint: FEVER, SORE THROAT, N/V, PREG 14WKS, HEADACHE Time Seen by Provider: 05/31/25 20:27 Arrival date/time: 05/31/25 19:02 24F with no significant PMH presents to ED with 1 day of sore throat, cough, fevers/chills, SOTO, and N/V. Patient's daughter has similar symptoms and was here yesterday with a diagnosis of bronchitis. Patient denies dysuria and vaginal bleeding. Patient is currently 14 weeks . Limitations: no limitations Related Data Home Medications ?Medication ?Instructions ?Recorded ?Confirmed vits no.130-ferrous fum 1 tab PO QDAY 5 10/23/24 27 mg iron-folic acid 800 mcg tablet ( Vitamin) Previous Rx's ?Medication ?Instructions ?Recorded docusate sodium 100 mg capsule 100 mg PO BID #60 caps 10/24/24 (Colace) ibuprofen 800 mg tablet 800 mg PO Q6H PRN pain #120 tabs 10/24/24 lanolin 50 % topical ointment 1 applic topical TID PRN skin 10/24/24 irritation #15 tubes Allergies Allergy/AdvReac Type Severity Reaction Status Date / Time latex Allergy Mild Rash Verified 05/31/25 19:05 Latex, Natural Rubber Allergy Verified 05/31/25 19:05 Review of Systems Review of Systems Systems Reviewed: All systems reviewed, normal except as documented Constitutional Constitutional: Reports system reviewed and no additional complaints, except as documented, Reports as per HPI, Reports chills, Reports fever(s) and Reports headache(s) ENT Ears, Nose, Mouth, and Throat: Reports as per HPI, Denies disequilibrium, Reports headache(s) and Reports sore throat Cardiovascular Cardiovascular: Reports system reviewed and no additional complaints, except as documented, Denies chest pain and Denies dyspnea Respiratory Respiratory: Reports system reviewed and no additional complaints, except as documented, Reports as per HPI, Reports cough and Denies dyspnea Gastrointestinal Gastrointestinal: Reports system reviewed and no additional complaints, except as documented, Reports as per HPI, Denies abdominal pain, Reports nausea and Reports vomiting Neurologic Neurologic: Reports system reviewed and no additional complaints, except as documented, Denies confusion, Denies disequilibrium and Reports headache(s) Psychiatric Psychiatric: Denies confusion Past Medical History Past Medical History NEUROLOGIC: Negative Neurological Disorders or Seizures CARDIAC: Negative Cardiac Disorders, Congestive Heart Failure, Hypertension or Hypotension RESPIRATORY: Negative Chronic Obstructive Pulmonary Disease (COPD) or Asthma GASTROINTESTINAL: Negative Gastrointestinal Disorders, Hepatitis or Colorectal Cancer GENITOURINARY: Negative Genitourinary Disorders, Renal Disease or Prostate Cancer REPRODUCTIVE: Negative Breast Cancer, Pelvic Inflammatory Disease, Previous Pregnancies or Testicular Cancer MUSCULOSKELETAL: Negative Musculoskeletal Disorders, Bone Cancer or Osteoporosis ENDOCRINE: Negative Endocrine Disorders, Diabetes Mellitus Type 1 or Diabetes Mellitus Type 2 HEMATOLOGIC: Negative Blood Disorders or Anemia PSYCHO/SOCIAL: Negative Bipolar Disorder, Depression or Anxiety OTHER HISTORY: Negative Hospitalization, Autoimmune Disease, Down Syndrome, Developmental Delay, Shingles, Falls, Blood Transfusions, Blood Transfusion Reaction, Anesthesia Reactions, Organ Transplant, Chemotherapy, Radiation Therapy, Hyperbaric Therapy, MRSA, VRSA, Vancomycin-Resistant Enterococci, Human Immunodeficiency Virus (HIV), Chicken Pox, Measles, Mumps, Rubella (Cypriot Measles), Pertussis, Clostridium Difficile, Cancer, Breast Cancer, Cervical Cancer, Colorectal Cancer, Lung Cancer, Ovarian Cancer, Prostate Cancer or Testicular Cancer Family History FAMILY HISTORY: Negative Family Psychiatric Problems, Family Respiratory Disorders, Family Cardiac Disorders, Family Gastrointestinal Problems, Family Cancer, Family Surgery or Family Anesthesia Reaction Surgical History SURGICAL: Negative Section or Organ Transplant Social History SMOKING STATUS: Never smoker SECOND HAND EXPOSURE: No ED Exam General Limitations: Present no limitations General appearance: Present alert and in no apparent distress Head Head exam: Present atraumatic Eye Eye exam: Present normal appearance, PERRL and EOMI ENT ENT exam: Present normal exam, normal oropharynx and mucous membranes moist Neck Neck exam: Present normal inspection, full ROM and trachea midline Chest Chest inspection: Present normal inspection and symmetric chest wall rise Respiratory Respiratory exam: Present normal lung sounds bilaterally Cardiovascular Cardiovascular exam: Present regular rate, normal rhythm and normal heart sounds Abdominal Exam Abdominal exam: Present soft and normal bowel sounds Extremities Exam Extremities exam: Present normal inspection and full ROM Back Exam Back exam: Present normal inspection and full ROM Neurological Exam Neurological exam: Present alert, oriented X3 and CN II-XII intact Psychiatric Psychiatric exam: Present normal affect and normal mood Skin Skin exam: Present warm, dry, intact and normal color Course Quality Measures none Orders Category Date Time Status Bedside COVID-19 Antigen Test NOW Care 05/31/25 20:03 Active Bedside Influenza A&B Antigen Test NOW Care 05/31/25 20:03 Completed CBC Stat Lab 05/31/25 20:27 Ordered CMP [Comprehensive Metabolic Panel] Stat Lab 05/31/25 20:27 Ordered Drug Screen,Urine Stat Lab 05/31/25 20:28 Ordered Lipase Stat Lab 05/31/25 20:27 Ordered Procalcitonin Stat Lab 05/31/25 20:27 Ordered Strep A Rapid Stat Lab 05/31/25 20:36 Received Urinalysis Stat Lab 05/31/25 20:28 Ordered Urine Culture Stat Lab 05/31/25 20:28 Ordered Metoclopramide [Reglan] Med 05/31/25 20:27 Discontinued 10 mg PO X1 ONE Vital Signs Vital signs: Vital Signs Temperature 100.1 F 05/31/25 19:55 Pulse Rate 122 H 05/31/25 19:55 Respiratory Rate 18 05/31/25 19:55 Blood Pressure 101/66 05/31/25 19:55 Pulse Oximetry (%) 97 05/31/25 19:55 Oxygen Delivery Method Room Air 05/31/25 19:55 O2 at 97% on RA and WNLs Upper Respiratory Infection MDM Narrative MDM Narrative:: 24F with no significant PMH presents to ED with 1 day of sore throat, cough, fevers/chills, SOTO, and N/V. Patient's daughter has similar symptoms and was here yesterday with a diagnosis of bronchitis. Patient denies dysuria and vaginal bleeding. Patient is currently 14 weeks . Physical exam reveals clear ENT. Normal WOB. Patient is afebrile, alert, but annoyed. Patient eloped. Patient data External records reviewed:: [facility] previous records Clinical information provided by:: patient Social determinants that could affect healthcare access:: none Patient has the following chronic illnesses:: none How is presenting disease/condition affected by chronic disease/condition?: no chronic disease Evaluation data The following diagnostics were reviewed and interpreted by me:: lab results Lab and/or radiology exams considered but not ordered:: ordered Interpretation Summary: above Medications / Prescriptions Medications or Prescriptions considered but not ordered:: ordered Medication administrations:: Medication Administration History Discontinued Medications Metoclopramide HCl (Metoclopramide 5 Mg Tablet) 10 mg PO X1 ONE Stop: 05/31/25 20:28 Last Admin: 05/31/25 20:53 Dose: Not Given Documented By: BD Non-Admin Reason: Other, see note above Consultations Consultation(s) initiated? (list below): No Diagnosis Upper Respiratory Differential Diagnosis: upper respiratory infection, croup, otitis media, sinusitis, viral infection, bronchitis, influenza, pharyngitis and other (UTI) Most likely diagnosis given after review of the tests above:: URI Admission Indicated Admission indicated?: not indicated Admission Request Was there a request for admission?: No Disposition Plan Disposition Plan: other (specify) (eloped) Discharge Plan Plan Patient Disposition: Elopement Prescriptions/Referrals Prescriptions/Med Rec: No Action Vitamin 27 mg iron- 800 mcg tablet 1 tab PO QDAY Patient Comments: TAKE 1 TABLET BY MOUTH EVERY DAY ibuprofen 800 mg tablet 800 mg PO Q6H MDD 4 PRN (Reason: pain) Qty: 120 0RF docusate sodium [Colace] 100 mg capsule 100 mg PO BID Qty: 60 0RF lanolin 50 % ointment 1 applic topical TID PRN (Reason: skin irritation) Qty: 15 0RF Problem List Clinical Impression: URI (upper respiratory infection) Patient/Caregiver Discharge Instructions Print Language: Malaysian PA/OUTDOOR EMERGENCY CARE TECHNICIAN Supervising Physician PA/OUTDOOR EMERGENCY CARE TECHNICIAN Supervising Physician: Dr. Harkins
--- NOTE | 2025-05-31 20:45 | PC.NURSE ---
called 2039 to give meds no answer
--- NOTE | 2025-05-31 20:47 | PC.NURSE ---
called pt to give meds @2044 no answer
--- NOTE | 2025-05-31 20:53 | PC.NURSE ---
called pt no answer x3
--- NOTE | 2025-05-31 20:54 | PC.NURSE ---
medication not given pt did not answer x3
[2025-05-31 21:04] LABS: Strep A Rapid Negative (Negative)
== END 2025-05-31 20:54 | disposition left against medical advice (07) ==
LOC: SERX 20:58
PROVIDERS: Physician Assistant; Emergency Provider Emergency Medicine
DX: O99.512 Diseases of the respiratory system complicating pregnancy, second trimester (principal); J06.9 Acute upper respiratory infection, unspecified; Z3A.14 14 weeks gestation of pregnancy
CPT/HCPCS: 80053; 80307; 81001; 83690; 84145; 85025; 87086; 87400; 87651; 87811; 99283

== ENCOUNTER 2025-06-09 10:25 | Outpatient (AMB) | payer MEDICAID, SELFPAY ==
[2025-06-09 10:42] VITALS: BP 130/87; PULSE 104; RESP 20; TEMP 36.6; O2SAT 97; BMI 30.4
--- NOTE | 2025-06-09 10:42 | OBCLNT_ITS ---
Vital Signs 06/09/25 10:42 Height 1.57 m Height Method Stated Weight 75.523 kg Weight Measurement Method Standing Scale BMI 30.4 BP 130/87 H Blood Pressure Source Automatic Cuff Blood Pressure Location Left Upper Arm Position Sitting Respiration 20 Pulse 104 H Pulse Source Monitor Temp 97.8 F Temp Source Oral Pulse Oximetry (%) 97 Oxygen Delivery Method Room Air Allergies/Home Meds Allergies & Medications Allergies latex Allergy (Mild, Verified 06/09/25 10:43) Rash Latex, Natural Rubber Allergy (Verified 06/09/25 10:43) Medication Reconciliation vits no.130-ferrous fum 27 mg iron-folic acid 800 mcg tablet ( Vitamin) 1 tab PO QDAY 10/08/24 [History Confirmed 06/09/25] docusate sodium 100 mg capsule (Colace) 100 mg PO BID #60 caps 10/24/24 [Rx Confirmed 06/09/25] ibuprofen 800 mg tablet 800 mg PO Q6H PRN pain #120 tabs 10/24/24 [Rx Confirmed 06/09/25] lanolin 50 % topical ointment 1 applic topical TID PRN skin irritation #15 tubes 10/24/24 [Rx Confirmed 06/09/25] Intake Visit Data Collection New Patient or Established: Established Patient (seen at [facility] within 3 years) Reason for Visit:: CARE Seen by Clinical Staff ONLY (RN/MA): No 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 1. Little interest or pleasure in doing things: not at all 2. Feeling down, depressed, or hopeless: not at all Total score: 0 PHQ-9 3. Trouble falling or staying asleep, or sleeping too much: Not at all 4. Feeling tired or having little energy: Not at all 5. Poor appetite or overeating: Not at all 6. Feeling bad about yourself - or that you are a failure or have let yourself or your family down: Not at all 7. Trouble concentrating on things, such as reading the newspaper or watching television: Not at all 8. Moving or speaking so slowly that other people could have noticed? - Or the opposite - being so fidgety or restless that you have been moving around a lot more than usual: not at all 9. Thoughts that you would be better off or of hurting yourself in some way: Not at all Total score: 0 Source: Developed by Drs. Rafael Lind, Lo Chun, Esequiel Guthrie and colleagues, with an educational zarina from [employer]. Depression screen completed yes Social History Living Situation History Lives With: Family Housing: House Tobacco History Smoking Status: Never smoker Second Hand Smoke Exposure: No Alcohol History Alcohol Intake: Former Alcohol Intake Frequency: holidays/special occasions only Domestic Abuse History Do You Feel Safe at Home: Yes History of Present Illness HPI Narrative 24-year-old 2 para 1 for OBI. Patient initially had an appointment with Dr. Callahan and then transferred care. She has poor dates. Her last period January 05, 2025. [facility] an [facility] on May 19, 2025. Patient was 12 weeks 2 days and this gives EDC of November 29, 2025. Patient has a previous history of marijuana use but she reports she stopped when she found out she was . And she drink beer occasionally. Denies any existence of chronic illnesses. Denies surgeries. She denies any symptoms of having a miscarriage. Denies any first trimester or second trimester discomforts. Patient had a negative NIPT. GC and Chlamydia were negative. Patient's hemoglobin and hematocrit were normal. Negative urine screen. Negative drug tox. Patient is hep B-, hepatitis C negative, HIV negative, hep A was negative, GC and Chlamydia were both negative. Patient is O- and antibody screen is negative. Rubella immune. RPR is nonreactive. 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 Medical History Past Medical History: No Hx Neurological Disorders, No Hx Breast Cancer, No Hx Cardiac Disorders, No Hx Hypertension, No Hx Cancer, No Hx Blood Disorders, No Hx Anemia, No Hx Gastrointestinal Disorders, No Hx Renal Disease, No Hx Diabetes Mellitus Type 1 and No Hx Diabetes Mellitus Type 2 OB Initial Visit OB Flowsheet OB Flowsheet Initial Weight: Not Recorded Date -?-?-?-?-?-?-?-?-?-?-?-?- EGA Weight BP Alb Glu CTX Pres Fundal ht FHR Mov Dilation Station Effacement Hx Notes Visit Note 06/09/25 -?-?-?-?-?-?-?-?-?-?-?-?- 15w 2d 75.523 kg 130/87 absent unknown 15 145 absent 24-year-old 2 para 1. Close interval spacing. Her baby at home is 7 months. Denies contractions, denies bleeding, denies leaking. No OB complaints at this time. Schedule for anatomy scan with Dr. Vidales. aFP and carrier screens today. Continue vitamins. Discussed SAB precautions. Return in 4 weeks OB check Menstrual History Menstrual reliability: definite Flow: normal Menstrual regularity: regular Monthly: Yes Age at menarche: 14 On control pills at conception: No Associated symptoms (LMP): Reports fatigue and breast tenderness OB History : 2 Para: 1 # of Living Children: 1 Delivery History 1st : Child's name: KELVIN date: 10/24/24 sex: female Gestational age at delivery (weeks): 39 Delivery type: vaginal Delivery complications: NONE History of depression before or after : No Infection History & Risk Evaluation History of STDs: none Genetic Screening & History Genetic Screening/Teratology Counseling - Includes patient, baby's father, or anyone in either family with: 1. Patient's age 35 years or older as of estimated date of delivery: No 2. Thalassemia (Sammarinese, Malay, Mediterranean, or Background); MCV less than 80: No 3. Neural Tube Defect (Meningomyelocele, Spina Bifida, or Anencephaly): No 4. Congenital Heart Defect: No 5. Down Syndrome: No 6. Jorge-Sachs (Ashkenazi Adventism, Cajun, Maltese [place]er): No 7. Shy Disease (Ashkenazi Adventism): No 8. Familial Dysautonomia (Ashkenazi Adventism): No 9. Sickle Cell Disease or Trait (): No 10. Hemophilia or other blood disorders: No 11. Muscular Dystrophy: No 12. Cystic Fibrosis: No 13. Hudson's Chorea: No 14. Mental Retardation/Autism: No 15. Other inherited genetic or chromosomal disorder: No 16. Maternal Metabolic Disorder (EG,TYPE 1 Diabetes, PKU): No 17. Patient or baby's father had a child with defects not listed above: No 18. Recurrent loss or a stillbirth: No 19. Medications (including supplements, vitamins, herbs or otc drugs)/illicit/recreational drugs/alcohol since last menstrual period: No 20. Any other: No Infection History 1. Live with someone with TB or exposed to TB: No 2. Rash or viral illness since last menstrual period: No 3. Hepatitis B,C: No Other (see comments) Source: [employer] Review of Systems Review of Systems Systems Reviewed: All systems reviewed, normal except as documented Constitutional Constitutional: Reports fatigue Endocrine Endocrine: Reports fatigue Exam General Limitations: no limitations General Appearance: alert, in no apparent distress, comfortable, cooperative, healthy appearing, well developed and well groomed Head Head exam: atraumatic, normocephalic and normal inspection Resp Respiratory exam: Present normal lung sounds bilaterally Card Cardiovascular exam: Present regular rate, normal rhythm and normal heart sounds Abdominal Abdominal exam: Present soft and normal bowel sounds Psych Psychiatric exam: Present normal affect and normal mood Office Procedures OB Clinic LOC & Office Proc's Nursing/Assessment Patient Status: Established Patient OB Clinic Nursing Assessment: Medication Reconciliation, Update PMH in EMR and Vital Signs OB Clinic Coordination of Care: Complex Care and Chronic Disease 1-5, Consent,records obtained, informed consent, Education Simp Pt/Fam, 1 Ins Authorization, Lab and Imaging orders, Results/Orders obtained and Staff clarify orders Special Needs: Heart tones Established Patient Charge Established Patient Point Assignment: 150 Established Patient Point Charge: EP Level 4 (120-155) Assessment & Plan Diagnosis / Problem List (1) Encounter for supervision of high risk in second trimester, antepartum: Status: Acute Plan aFP and carrier screens today. Schedule for anatomy scan. Continue prenatals. Discussed SAB precautions. Return in 4 weeks OB check. RhoGAM at 28 weeks Additional Plan Follow Up: 4 Weeks (obc)
== END 2025-06-09 11:14 | disposition home or self-care (01) ==
LOC: HODSOBC 10:25
PROVIDERS: PCP Family Medicine; Referring Provider Family Medicine; Supervising Provider Advanced Practice Midwife; Visit Provider Advanced Practice Midwife
DX: O09.92 Supervision of high risk pregnancy, unspecified, second trimester (principal); Z3A.15 15 weeks gestation of pregnancy
CPT/HCPCS: 99214; G0463